=== PATIENT | female | born 1945 | race Caucasian/White ===

== ENCOUNTER 2018-05-05 10:03 | Outpatient (CLI) | payer OTHER, SELFPAY ==
[2018-05-05 10:23] LABS: Abs Immature Grans 0.03 k/cumm (0.0-0.09); Absolute Basophil Count 0.03 k/cumm (0.0-0.2); Absolute Eosinophil Count 0.32 k/cumm (0.0-0.7); Absolute Lymphocyte Count 0.69 k/cumm (1.2-3.4); Absolute Monocyte Count 0.88 k/cumm (0.11-0.7); Absolute Neutrophil Count 4.85 k/cumm (1.2-6.7); Basophils % 0.4; Eosinophils % 4.7; HCT 36.8 % (36.0-46.0); Immature Grans % 0.4; Lymphocytes % 10.1; Mean Corp. HGB Concentration 32.6 g/dL (32.0-36.0); Mean Corpuscular Hemoglobin 28.9 pg (27.0-33.0); Mean Corpuscular Volume 88.7 fL (80-95); Mean Platelet Volume 9.4 fL (8.0-11.0); Monocytes % 12.9; Neutrophils % 71.5; Platelet Count 175 x1000/uL (130-400); RBC 4.15 m/cumm (4.00-5.20); RBC Distribution Width 13.4 % (11.7-14.6)
[2018-05-05 10:43] LABS: ALT 16 U/L (12-78); AST 12 U/L (15-37); Albumin 3.1 g/dL (3.4-5.0); Alkaline Phosphatase 86 U/L (46-116); BUN 18 mg/dL (7-18); Bilirubin, Total 0.4 mg/dL (0.2-1.0); CREATININE 1.22 mg/dL (0.55-1.02); Chloride 104 mmol/L (98-107); Estimated GFR 43.08 (mL/min/1.73m2); Glucose 124 mg/dL (70-100); Potassium 3.6 mmol/L (3.5-5.1); Sodium 143 mmol/L (136-145); Total Protein 6.6 g/dL (6.4-8.2)
== END 2018-05-05 10:23 ==
PROVIDERS: PCP Student in an Organized Health Care Education/Training Program; Visit Provider Nurse Practitioner Family
DX: C91.10 Chronic lymphocytic leukemia of B-cell type not having achieved remission (principal)
CPT/HCPCS: 36415; 80053; 85025

== ENCOUNTER 2018-05-10 12:32 | Emergency (ER) | payer OTHER, SELFPAY ==
[2018-05-10 12:38] VITALS: BP 107/61; PULSE 74; RESP 16; TEMP 36.7; O2SAT 98
--- NOTE | 2018-05-10 12:58 | W.ED.GENAD ---
Discharge Plan Disposition Patient Disposition: HOME Condition: Good Discharge Details Chief Complaint: Orthopedic Clinical Impression: Foot pain, right Primary Care Provider: Dorothy Mosley ED Provider: Armando Chase Home Meds and New Rx's Prescriptions: Continue levothyroxine 137 MCG tablet 137 mcg PO DAILY RF: 0 calcitriol 0.25 MCG capsule 2 tab PO DAILY RF: 0 magnesium chloride [Mag 64] 64 MG tablet,delayed release (DR/EC) 64 mg PO DAILY RF: 0 venlafaxine 150 MG capsule,extended release 24hr 150 mg PO DAILY RF: 0 simvastatin 40 MG tablet 40 mg PO HS RF: 0 propranolol 60 mg Capsule,Extended Release 24 Hr 60 mg PO DAILY RF: 0 Discharge Instructions Additional Instructions: based on your exam you likely have gout, we have phoned a prescription to your pharmacy take ibuprofen and tylenol as needed for pain, follow dosing instructions on packaging if you have fevers, redness or severe worsening of pain return to the emergency department follow up as scheduled with your primary care provider Medical Decision Making 72 yo female with hx of cll, hld, htn, who comes in with cc of a week of right foot pain without trauma, fevers, leg swelling or calf pain. Has pain over metatarsals. States she gets this every once in a while and was told it may be gout. Has no redness or swelling, intact sensation and 2+ dp/pt pulses so unlikely arterial occlusion or dissection. No redness or wramth to suggest infection. full rom of the ankle so doubt septic joint. Will start her on steroids for possible gout and advised f/u with pcp and return precautions given. No leg swelling or calf pain so doubt dvt. No trauma or palpable deformities so doubt fx and don't feel xrays indicated Differential Diagnosis gout, sprain, strain, contusion HPI General Mode of arrival: ambulatory. Date/Time Provider Initiated Documentation: 05/10/18 12:45. Limitations to Documentation: no limitations. Information obtained by: patient. History of Present Illness 72 year old F presents to the emergency department with the chief complaint of right foot pain, described as moderate, with intensity rated at 6. Quality is described as aching, and is localized to the right and lower extremity. Patient reports no radiation. Patient started experiencing this week(s) (1) and it has been constant. Rest improves symptom(s), Patient notes no other symptoms.. Patient did receive the following treatments prior to arrival, NSAID Related Data Home Medications Medication Instructions Recorded Confirmed calcitriol 2 tab PO DAILY 04/20/13 05/10/18 levothyroxine 137 mcg PO DAILY 04/20/13 05/10/18 magnesium chloride [Mag 64] 64 mg PO DAILY 04/20/13 05/10/18 simvastatin 40 mg PO HS 04/20/13 05/10/18 venlafaxine 150 mg PO DAILY 04/20/13 05/10/18 propranolol 60 mg PO DAILY 05/10/18 05/10/18 Allergies Allergy/AdvReac Type Severity Reaction Status Date / Time lisinopril Allergy sob Unverified 05/10/18 12:41 ranitidine Allergy Wheezing Unverified 05/10/18 12:41 atorvastatin AdvReac Diarrhea Unverified 05/10/18 12:41 IVP dye Allergy Anaphylaxsi Uncoded 05/10/18 12:41 s General Stated Complaint: Orthopedic MEAGHAN: 3 Review of Systems Review of Systems All systems reviewed & are unremarkable except as noted in HPI and below Constitutional Denies chills, Denies fever(s) and Denies weakness Eyes Denies loss of vision ENT Denies change in voice Cardiovascular Denies chest pain and Denies dyspnea Respiratory Denies dyspnea Gastrointestinal Denies abdominal pain, Denies nausea and Denies vomiting Genitourinary Denies dysuria Musculoskeletal Denies joint swelling Integumentary/Breasts Denies rash Neurologic Denies loss of vision and Denies weakness Psychiatric Denies depression Endocrine Denies cold intolerance and Denies heat intolerance Allergic/Immunologic Denies urticaria PFSH Social History Smoking/Tobacco Use Status: Former Tobacco Use Exam Const General: no acute distress Orientation: alert [facility] Head: normal to inspection Ears: external ears normal General nose exam: external nose normal Mouth: moist mucous membranes Eyes General: appearance normal, both eyes and all related structures Neck Neck: normal visual inspection Resp Effort & Inspection: normal respiratory effort and able to speak in complete sentences Cardio Rate: regular rate Skin General skin exam: no rashes or lesions noted Neuro General: alert and oriented x3 Extrem General: normal to inspection, full ROM and normal capillary refill Psych Mental Status: mental status grossly normal Course Vital Signs Temperature 36.7 C 05/10/18 12:38 Pulse 74 05/10/18 12:38 Respiratory Rate 16 05/10/18 12:38 Blood Pressure 107/61 05/10/18 12:38 Pulse Oximetry 98 05/10/18 12:38 Temperature 36.7 C 05/10/18 12:38 Temperature Source Temporal Artery Scan 05/10/18 12:38 Pulse 74 05/10/18 12:38 Respiratory Rate 16 05/10/18 12:38 Blood Pressure 107/61 05/10/18 12:38 Blood Pressure Position Sitting 05/10/18 12:38 Pulse Oximetry 98 05/10/18 12:38 Oxygen Delivery Method Room Air 05/10/18 12:38 Oxygen Flow Rate 0 05/10/18 12:38 Pain Level 10 05/10/18 12:38
== END 2018-05-10 13:20 | disposition home or self-care (01) ==
PROVIDERS: Emergency Provider Emergency Medicine; PCP Student in an Organized Health Care Education/Training Program
DX: M79.671 Pain in right foot (principal); I10 Essential (primary) hypertension
CPT/HCPCS: 99283

== ENCOUNTER 2018-06-09 08:14 | Emergency (ER) | payer OTHER, SELFPAY ==
[2018-06-09 08:20] VITALS: BP 111/91; PULSE 84; RESP 16; TEMP 37; O2SAT 98
--- NOTE | 2018-06-09 08:21 | W.ED.GENAD ---
Discharge Plan Disposition Patient Disposition: HOME Condition: Fair Discharge Details Chief Complaint: Orthopedic Clinical Impression: Osteoarthritis of right knee Primary Care Provider: Dorothy Mosley ED Provider: Mitzy Soliz Home Meds and New Rx's Prescriptions: Continued levothyroxine 137 MCG tablet 137 mcg PO DAILY RF: 0 calcitriol 0.25 MCG capsule 2 tab PO DAILY RF: 0 magnesium chloride [Mag 64] 64 MG tablet,delayed release (DR/EC) 64 mg PO DAILY RF: 0 venlafaxine 150 MG capsule,extended release 24hr 150 mg PO DAILY RF: 0 simvastatin 40 MG tablet 40 mg PO HS RF: 0 propranolol 60 mg Capsule,Extended Release 24 Hr 60 mg PO DAILY RF: 0 Discharge Instructions Instructions: Arthritis (ED) Additional Instructions: Encourage rest, ice, elevation. Tylenol and/or antiinflammatory as needed for discomfort. LISBET wrap may help with swelling and stabilization. Please call orthopedics today to schedule follow up appointment and discuss further care. If you develop fevers/chills, redness/warmth or other new/worsening symptoms seek care urgently once again. Referrals: Dorothy Mosley [Primary Care Provider] - Ritchie Matamoros MD [ [facility] STAFF PHYSICIAN] - Discharge Data Discharge Date/Time-TO BE ENTERED AT DEPARTURE: 06/09/18 10:45 Medical Decision Making Patient is a 72 year old female presenting today with c/c of right knee pain. Patient has history of osteoarthritis, anxiety, gout, hypertension, high cholesterol, hypothyroidism, kidney stones, leukemia. Patient reports that 8 years ago she dislocated her right knee. Denies any ligamentous injury or surgical repair. Reports that at that time, she was treated with a brace for approximately 5 days which greatly helped with her discomfort. States she has had chronic discomfort in this knee. States is much worse with going up or down stairs typically she leads with the contralateral leg. Was recently in physical therapy, particularly pool therapy, at which time she reports she exacerbated her discomfort. She reports that 3 days ago she was on steps in the water when she tried to lead with her right knee. This exacerbated her discomfort. She reports that her pain is severe. Denies any recent illness. No fevers or chills. Denies any altered sensation in the extremity. Patient was able to dress herself and drive herself to the emergency department. Patient was able to walk into the department but then required a wheelchair for mobility. She does report that she uses walking sticks or walker at home to help with ambulation and has done so for the past few months. Exam is very limited. Patient prefers to hold the knee in a semi-flex position will not allow me to straighten it past 45 degrees. She is very tense and fighting on the exam. I do not appreciate any warmth or swelling. No deformity is palpable. Pain seems to be primarily along the medial aspect of the joint line. No pain over the patella or lateral joint line. Calf is soft and nontender. She is 2+ distal pulses. I did witness the patient get up, he herself undressed for the exam and transferred to the bed. At that time, the knee did appear in full extension. We will obtain radiographic images. Will give Tylenol and ibuprofen to help with discomfort. I placed an ice pack on the knee to also help with discomfort. Reviewed XR, significant for severe OA. Discussed findings with the patient. We discussed methods to help with her acute discomfort, she declines any prescription analgesics. ADvised f/u with orthopedics, she will call today for appointment. At this point, she was very upset about the arthritis diagnosis, states she has discussed this in the past and hates that word. Her main concern seems to be around possible need for surgical intervention after, I have been through so much. Would prefer the least invasive options such as an injection. Encouraged rest, ice, elevation. Tylenol and/or NSAID as needed for discomfort. Advised that she continue with her water exercises to keep up mobility. We discussed new/worsneing symptoms and when to seek care urgently once again. All of her questions and concerns were addressed, she is in agreement with this plan. HPI General Mode of arrival: wheelchair. Date/Time Provider Initiated Documentation: 06/09/18 08:20. Limitations to Documentation: no limitations. Information obtained by: patient. History of Present Illness 72 year old F presents to the emergency department with the chief complaint of right knee pain, described as severe, with intensity rated at 9. Quality is described as sharp, and is localized to the right and lower extremity. Patient reports no radiation. Patient started experiencing this year(s) and it has been intermittent. Immobilization improves symptom(s), Movement worsens symptoms . Patient notes denies chest pain, cough, fever/chills, nausea/vomiting, rash and weakness. Patient did receive the following treatments prior to arrival, other (tylenol) Related Data Home Medications Medication Instructions Recorded Confirmed calcitriol 2 tab PO DAILY 04/20/13 06/09/18 levothyroxine 137 mcg PO DAILY 04/20/13 06/09/18 magnesium chloride [Mag 64] 64 mg PO DAILY 04/20/13 06/09/18 simvastatin 40 mg PO HS 04/20/13 06/09/18 venlafaxine 150 mg PO DAILY 04/20/13 06/09/18 propranolol 60 mg PO DAILY 05/10/18 06/09/18 Allergies Allergy/AdvReac Type Severity Reaction Status Date / Time lisinopril Allergy sob Unverified 06/09/18 08:23 ranitidine Allergy Wheezing Unverified 06/09/18 08:23 atorvastatin AdvReac Diarrhea Unverified 06/09/18 08:23 IVP dye Allergy Anaphylaxsi Uncoded 06/09/18 08:23 s General MEAHGAN: 3 Review of Systems Constitutional Reports as per HPI, Denies chills, Denies fever(s), Denies headache(s) and Denies weakness ENT Denies headache(s) Cardiovascular Reports as per HPI Respiratory Reports as per HPI and Denies cough Musculoskeletal Reports as per HPI and Denies tingling Integumentary/Breasts Reports as per HPI, Denies rash and Denies wounds Neurologic Denies headache(s), Denies tingling and Denies weakness PFS Social History Smoking/Tobacco Use Status: Former Tobacco Use Exam Const General: cooperative, healthy appearing, comfortable, no acute distress, well developed and well groomed Nutritional Appearance: well nourished and overweight Orientation: alert and awake Resp Effort & Inspection: normal respiratory effort, able to speak in complete sentences and no respiratory distress Auscultation: clear to auscultation bilaterally, no rales, no rhonchi and no wheezes Cardio Rate: regular rate Rhythm: regular rhythm Heart Sounds: S1 normal and S2 normal Skin General skin exam: no rashes or lesions noted Lesions: no lesions Rashes: no rashes Trauma: no lacerations or abrasions Neuro General: alert and awake Cognition: normal cognition Speech: speech normal Gait: normal gait Motor: muscle tone normal throughout Sensory Exam: no sensory deficits noted Extrem General: normal capillary refill, no joint enlargement, no clubbing, cyanosis or edema, no pedal edema, no calf tenderness and normal gait Left lower extremity: normal capillary refill (2+ distal pulses), no joint enlargement and knee Details: tenderness Location: of the medial joint line and knee ligament exam normal (unable to preform exam); no swelling, ROM abnormal, no abrasions, no lacerations, no ecchymosis, no crepitus, no deformity and no unusual warmth; abnormal to inspection (unable to examine right knee well), abnormal ROM (full flexion, will not straighten unless standing on the extremity) and no edema Psych Appearance: grossly normal and well kempt Mental Status: mental status grossly normal Speech and Movement: speech and movement normal
--- NOTE | 2018-06-09 08:46 | DI.RAD_ITS ---
SYMPTOM/DIAGNOSIS: RT KNEE PAIN RIGHT KNEE: Severe degenerative changes are demonstrated with essentially obliteration of the lateral tibiofemoral joint compartment and severe narrowing of the medial tibiofemoral joint compartment. There is articular sclerosis and prominent hypertrophic spurring and medial subluxation of the femur on the tibial plateau. In addition, severe degenerative changes involving the patellofemoral joint are identified. SUMMARY: End stage DJD right knee.
[2018-06-09] MEDS: Ibuprofen 600 MG TAB PO (08:54)
[2018-06-09] MEDS: Acetaminophen 500 MG TAB PO (08:55)
--- NOTE | 2018-06-09 08:55 | NUR.NOTE ---
patient medicated per MD order Nursing Note:
--- NOTE | 2018-06-09 08:56 | ED.GENADUL_ITS ---
Discharge Plan Disposition Patient Disposition: HOME Condition: Fair Discharge Details Chief Complaint: Orthopedic Clinical Impression: Osteoarthritis of right knee Primary Care Provider: Dorothy Mosley ED Provider: Mitzy Soliz Home Meds and New Rx's Prescriptions: Continued levothyroxine 137 MCG tablet 137 mcg PO DAILY RF: 0 calcitriol 0.25 MCG capsule 2 tab PO DAILY RF: 0 magnesium chloride [Mag 64] 64 MG tablet,delayed release (DR/EC) 64 mg PO DAILY RF: 0 venlafaxine 150 MG capsule,extended release 24hr 150 mg PO DAILY RF: 0 simvastatin 40 MG tablet 40 mg PO HS RF: 0 propranolol 60 mg Capsule,Extended Release 24 Hr 60 mg PO DAILY RF: 0 Discharge Instructions Instructions: Arthritis (ED) Additional Instructions: Encourage rest, ice, elevation. Tylenol and/or antiinflammatory as needed for discomfort. LISBET wrap may help with swelling and stabilization. Please call orthopedics today to schedule follow up appointment and discuss further care. If you develop fevers/chills, redness/warmth or other new/worsening symptoms seek care urgently once again. Referrals: Dorothy Mosley [Primary Care Provider] - Ritchie Matamoros MD [ [facility] STAFF PHYSICIAN] - Discharge Data Discharge Date/Time-TO BE ENTERED AT DEPARTURE: 06/09/18 10:45 Medical Decision Making Patient is a 72 year old female presenting today with c/c of right knee pain. Patient has history of osteoarthritis, anxiety, gout, hypertension, high cholesterol, hypothyroidism, kidney stones, leukemia. Patient reports that 8 years ago she dislocated her right knee. Denies any ligamentous injury or surgical repair. Reports that at that time, she was treated with a brace for approximately 5 days which greatly helped with her discomfort. States she has had chronic discomfort in this knee. States is much worse with going up or down stairs typically she leads with the contralateral leg. Was recently in physical therapy, particularly pool therapy, at which time she reports she exacerbated her discomfort. She reports that 3 days ago she was on steps in the water when she tried to lead with her right knee. This exacerbated her discomfort. She reports that her pain is severe. Denies any recent illness. No fevers or chills. Denies any altered sensation in the extremity. Patient was able to dress herself and drive herself to the emergency department. Patient was able to walk into the department but then required a wheelchair for mobility. She does report that she uses walking sticks or walker at home to help with ambulation and has done so for the past few months. Exam is very limited. Patient prefers to hold the knee in a semi-flex position will not allow me to straighten it past 45 degrees. She is very tense and fighting on the exam. I do not appreciate any warmth or swelling. No deformity is palpable. Pain seems to be primarily along the medial aspect of the joint l ine. No pain over the patella or lateral joint line. Calf is soft and nontender. She is 2+ distal pulses. I did witness the patient get up, he herself undressed for the exam and transferred to the bed. At that time, the knee did appear in full extension. We will obtain radiographic images. Will give Tylenol and ibuprofen to help with discomfort. I placed an ice pack on the knee to also help with discomfort. Reviewed XR, significant for severe OA. Discussed findings with the patient. We discussed methods to help with her acute discomfort, she declines any prescription analgesics. ADvised f/u with orthopedics, she will call today for appointment. At this point, she was very upset about the arthritis diagnosis, states she has discussed this in the past and hates that word. Her main concern seems to be around possible need for surgical intervention after, I have been through so much. Would prefer the least invasive options such as an injection. Encouraged rest, ice, elevation. Tylenol and/or NSAID as needed for discomfort. Advised that she continue with her water exercises to keep up mobility. We discussed new/worsneing symptoms and when to seek care urgently once again. All of her questions and concerns were addressed, she is in agreement with this plan. HPI General Mode of arrival: wheelchair . Date/Time Provider Initiated Documentation: 06/09/18 08:20 . Limitations to Documentation: no limitations . Information obtained by: patient . History of Present Illness 72 year old F presents to the emergency department with the chief complaint of right knee pain, described as severe, with intensity rated at 9. Quality is described as sharp, and is localized to the right and lower extremity. Patient reports no radiation. Patient started experiencing this year(s) and it has been intermittent. Immobilization improves symptom(s), Movement worsens symptoms . Patient notes denies chest pain, cough, fever/chills, nausea/vomiting, rash and weakness. Patient did receive the following treatments prior to arrival, other (tylenol) Related Data Home Medications Medication Instructions Recorded Confirmed calcitriol 2 tab PO DAILY 04/20/13 06/09/18 levothyroxine 137 mcg PO DAILY 04/20/13 06/09/18 magnesium chloride [Mag 64] 64 mg PO DAILY 04/20/13 06/09/18 simvastatin 40 mg PO HS 04/20/13 06/09/18 venlafaxine 150 mg PO DAILY 04/20/13 06/09/18 propranolol 60 mg PO DAILY 05/10/18 06/09/18 Allergies Allergy/AdvReac Type Severity Reaction Status Date / Time lisinopril Allergy sob Unverified 06/09/18 08:23 ranitidine Allergy Wheezing Unverified 06/09/18 08:23 atorvastatin AdvReac Diarrhea Unverified 06/09/18 08:23 IVP dye Allergy Anaphylaxsi Uncoded 06/09/18 08:23 s General MEAGHAN: 3 Review of Systems Constitutional Reports as per HPI, Denies chills, Denies fever(s), Denies headache(s) and Denies weakness ENT Denies headache(s) Cardiovascular Reports as per HPI Respiratory Reports as per HPI and Denies cough Musculoskeletal Reports as per HPI and Denies tingling Integumentary/Breasts Reports as per HPI, Denies rash and Denies wounds Neurologic Denies headache(s), Denies tingling and Denies weakness PFS Social History Smoking/Tobacco Use Status: Former Tobacco Use Exam Const General: cooperative, healthy appearing, comfortable, no acute distress, well developed and well groomed Nutritional Appearance: well nourished and overweight Orientation: alert and awake Resp Effort & Inspection: normal respiratory effort, able to speak in complete sentences and no respiratory distress Auscultation: clear to auscultation bilaterally, no rales, no rhonchi and no wheezes Cardio Rate: regular rate Rhythm: regular rhythm Heart Sounds: S1 normal and S2 normal Skin General skin exam: no rashes or lesions noted Lesions: no lesions Rashes: no rashes Trauma: no lacerations or abrasions Neuro General: alert and awake Cognition: normal cognition Speech: speech normal Gait: normal gait Motor: muscle tone normal throughout Sensory Exam: no sensory deficits noted Extrem General: normal capillary refill, no joint enlargement, no clubbing, cyanosis or edema, no pedal edema, no calf tenderness and normal gait Left lower extremity: normal capillary refill (2+ distal pulses), no joint enlargement and knee Details: tenderness Location: of the medial joint line and knee ligament exam normal (unable to preform exam); no swelling, ROM abnormal, no abrasions, no lacerations, no ecchymosis, no crepitus, no deformity and no unusual warmth; abnormal to inspection (unable to examine right knee well), abnormal ROM (full flexion, will not straighten unless standing on the extremity) and no edema Psych Appearance: grossly normal and well kempt Mental Status: mental status grossly normal Speech and Movement: speech and movement normal
--- NOTE | 2018-06-09 08:56 | NUR.NOTE ---
patient medicated per MD order Nursing Note:
--- NOTE | 2018-06-09 10:21 | NUR.NOTE ---
patient received ed wrap and medication instruction. patient home with self Nursing Note:
--- NOTE | 2018-06-09 10:23 | NUR.NOTE ---
pain improved /10 Nursing Note:
--- NOTE | 2018-06-09 10:33 | NUR.NOTE ---
patient received ed wrap and medication teaching per PA order Nursing Note:
== END 2018-06-09 10:46 | disposition home or self-care (01) ==
PROVIDERS: Emergency Provider Physician Assistant; PCP Student in an Organized Health Care Education/Training Program
DX: M17.11 Unilateral primary osteoarthritis, right knee (principal); I10 Essential (primary) hypertension
CPT/HCPCS: 99282; 73564

== ENCOUNTER 2018-09-20 14:44 | Outpatient (REF) | payer OTHER, SELFPAY ==
[2018-09-20 14:41] LABS: Abs Immature Grans 0.09 k/cumm (0.0-0.09); Absolute Basophil Count 0.03 k/cumm (0.0-0.2); Absolute Eosinophil Count 0.21 k/cumm (0.0-0.7); Absolute Lymphocyte Count 0.79 k/cumm (1.2-3.4); Basophils % 0.2; Eosinophils % 1.7; HCT 32.4 % (36.0-46.0); HGB 10.4 g/dL (12.0-15.5); Immature Grans % 0.7; Lymphocytes % 6.3; Mean Corp. HGB Concentration 32.1 g/dL (32.0-36.0); Mean Corpuscular Hemoglobin 28.9 pg (27.0-33.0); Mean Platelet Volume 9.7 fL (8.0-11.0); Monocytes % 7.2; Neutrophils % 83.9; Platelet Count 253 x1000/uL (130-400); RBC Distribution Width 13.5 % (11.7-14.6); White Blood Cell Count 12.52 k/cumm (4.4-10.8)
[2018-09-20 16:06] LABS: Anion Gap 12.4 mmol/L (3-11); BUN 16 mg/dL (7-18); CO2 25.6 mmol/L (21.0-32.0); Chloride 103 mmol/L (98-107); Glucose 146 mg/dL (70-100); Potassium 4.1 mmol/L (3.5-5.1); Sodium 141 mmol/L (136-145); TSH 1.52 uIU/mL (0.358-3.74)
== END 2018-09-20 15:04 ==
LOC: LBN 14:44
PROVIDERS: PCP Student in an Organized Health Care Education/Training Program; Visit Provider Family Medicine
DX: E86.0 Dehydration (principal); C91.11 Chronic lymphocytic leukemia of B-cell type in remission; N18.9 Chronic kidney disease, unspecified; I10 Essential (primary) hypertension; E03.9 Hypothyroidism, unspecified; E78.5 Hyperlipidemia, unspecified
CPT/HCPCS: 80048; 84443; 85025

== ENCOUNTER 2018-09-21 20:31 | Outpatient (REF) | payer OTHER, SELFPAY ==
[2018-09-21 20:31] LABS: Bilirubin Negative (Negative); Blood Trace-intact (Negative); Clarity Sl Cloudy; Glucose Negative (Negative); Ketones Negative (Negative); Leukocyte Esterase Small (Negative); Nitrite Negative (Negative); Specific Gravity 1.015 (1.005-1.025); Urobilinogen 0.2 EU/dL (Up TO 0.2)
[2018-09-21 21:04] LABS: Bacteria Moderate HPF (Negative); C & S Indicated? Yes; Casts Negative LPF (Negative); Crystals Negative HPF (Negative); Epithelial Cells Few HPF (Negative); Mucus Negative (Negative); Other Cells Negative (Negative)
== END 2018-09-21 20:51 ==
LOC: LBN 20:31
PROVIDERS: PCP Student in an Organized Health Care Education/Training Program; Visit Provider Family Medicine
DX: D72.829 Elevated white blood cell count, unspecified (principal)
CPT/HCPCS: 81003; 81015; 87086

== ENCOUNTER 2018-09-25 12:28 | Outpatient (REF) | payer OTHER, SELFPAY ==
[2018-09-25 13:51] LABS: Abs Immature Grans 0.15 k/cumm (0.0-0.09); Absolute Basophil Count 0.05 k/cumm (0.0-0.2); Absolute Eosinophil Count 0.34 k/cumm (0.0-0.7); Absolute Monocyte Count 1.26 k/cumm (0.11-0.7); Absolute Neutrophil Count 12.09 k/cumm (1.2-6.7); Basophils % 0.3; Eosinophils % 2.2; HCT 32.2 % (36.0-46.0); HGB 10.5 g/dL (12.0-15.5); Lymphocytes % 9.5; Mean Corp. HGB Concentration 32.6 g/dL (32.0-36.0); Mean Corpuscular Hemoglobin 29.3 pg (27.0-33.0); Mean Corpuscular Volume 89.9 fL (80-95); Mean Platelet Volume 9.1 fL (8.0-11.0); Monocytes % 8.2; Neutrophils % 78.8; Platelet Count 300 x1000/uL (130-400); RBC 3.58 m/cumm (4.00-5.20); RBC Distribution Width 13.4 % (11.7-14.6); White Blood Cell Count 15.34 k/cumm (4.4-10.8)
[2018-09-25 13:54] LABS: Absolute Lymphocyte Count 1.46 k/cumm (1.2-3.4)
== END 2018-09-25 12:48 ==
LOC: LBN 12:28
PROVIDERS: PCP Student in an Organized Health Care Education/Training Program; Visit Provider Family Medicine
DX: D72.829 Elevated white blood cell count, unspecified (principal)
CPT/HCPCS: 85025

== ENCOUNTER 2018-09-27 15:00 | Outpatient (REF) | payer OTHER, SELFPAY ==
[2018-09-27 18:40] LABS: Bilirubin Negative (Negative); Blood Negative (Negative); Clarity Clear; Glucose Negative (Negative); Ketones Negative (Negative); Leukocyte Esterase Small (Negative); Nitrite Negative (Negative); Urobilinogen 0.2 EU/dL (Up TO 0.2); pH 6.5 (5-8)
[2018-09-27 19:15] LABS: Bacteria Rare HPF (Negative); C & S Indicated? No; Casts Negative LPF (Negative); Crystals Negative HPF (Negative); Epithelial Cells Rare HPF (Negative); Mucus Negative (Negative); Other Cells Negative (Negative); RBC Negative (0-2); WBC 0-2 HPF (0-5)
== END 2018-09-27 15:20 ==
LOC: LBN 15:00
PROVIDERS: PCP Student in an Organized Health Care Education/Training Program; Visit Provider Family Medicine
DX: D72.829 Elevated white blood cell count, unspecified (principal)
CPT/HCPCS: 81003; 81015

== ENCOUNTER 2018-09-28 12:26 | Outpatient (REF) | payer OTHER, SELFPAY ==
[2018-09-28 12:46] LABS: Abs Immature Grans 0.12 k/cumm (0.0-0.09); Absolute Basophil Count 0.05 k/cumm (0.0-0.2); Absolute Lymphocyte Count 1.43 k/cumm (1.2-3.4); Absolute Monocyte Count 1.25 k/cumm (0.11-0.7); Basophils % 0.4; Eosinophils % 4.8; HCT 35.2 % (36.0-46.0); HGB 11.1 g/dL (12.0-15.5); Immature Grans % 0.9; Lymphocytes % 10.5; Mean Corp. HGB Concentration 31.5 g/dL (32.0-36.0); Mean Corpuscular Hemoglobin 28.5 pg (27.0-33.0); Mean Corpuscular Volume 90.3 fL (80-95); Mean Platelet Volume 9.9 fL (8.0-11.0); Monocytes % 9.2; Neutrophils % 74.2; Platelet Count 316 x1000/uL (130-400); RBC Distribution Width 13.5 % (11.7-14.6); White Blood Cell Count 13.63 k/cumm (4.4-10.8)
[2018-09-28 12:47] LABS: Absolute Eosinophil Count 0.65 k/cumm (0.0-0.7); Absolute Neutrophil Count 10.11 k/cumm (1.2-6.7)
== END 2018-09-28 12:46 ==
LOC: LBN 12:26
PROVIDERS: PCP Student in an Organized Health Care Education/Training Program; Visit Provider Family Medicine
DX: E86.0 Dehydration (principal)
CPT/HCPCS: 85025

== ENCOUNTER 2018-09-29 00:31 | Outpatient (CLI) | payer OTHER, SELFPAY ==
--- NOTE | 2018-09-29 10:39 | DI.US_ITS ---
SYMPTOMS/DIAGNOSIS: RLE REDNESS, WARMTH, ? DVT DUPLEX VENOUS RIGHT LOWER EXTREMITY: Duplex evaluation of the deep venous system was performed according to the usual protocol. The deep veins are freely compressible throughout to the level of the popliteal veins. There is normal doppler flow visible throughout and there is excellent flow augmentation with manual calf compression. CONCLUSION: No evidence of deep venous thrombosis.
--- NOTE | 2018-09-29 10:40 | DI.RAD_ITS ---
SYMPTOMS/DIAGNOSIS: COUGH, INCREASED WBC PA AND LATERAL CHEST: The heart is not enlarged. The lungs appear generally clear. There is a question of minimal pleural blunting laterally on the PA view but this finding appears to have been present on multiple previous chest films. No fluid seen in the posterior sulcus on the lateral film. CONCLUSION: Negative examination of the chest.
== END 2018-09-29 00:51 ==
PROVIDERS: PCP Student in an Organized Health Care Education/Training Program; Visit Provider Family Medicine
DX: R05 Cough (principal); D72.829 Elevated white blood cell count, unspecified; L53.9 Erythematous condition, unspecified
CPT/HCPCS: 71046; 93971

== ENCOUNTER 2018-11-24 10:24 | Outpatient (CLI) | payer OTHER, SELFPAY ==
[2018-11-24 10:52] LABS: Abs Immature Grans 0.02 k/cumm (0.0-0.09); Absolute Basophil Count 0.03 k/cumm (0.0-0.2); Absolute Eosinophil Count 0.21 k/cumm (0.0-0.7); Absolute Monocyte Count 0.79 k/cumm (0.11-0.7); Absolute Neutrophil Count 6.62 k/cumm (1.2-6.7); Basophils % 0.3; Eosinophils % 2.3; HCT 38.8 % (36.0-46.0); HGB 12.3 g/dL (12.0-15.5); Immature Grans % 0.2; Lymphocytes % 15.4; Mean Corp. HGB Concentration 31.7 g/dL (32.0-36.0); Mean Corpuscular Hemoglobin 27.9 pg (27.0-33.0); Mean Platelet Volume 9.7 fL (8.0-11.0); Monocytes % 8.7; Neutrophils % 73.1; Platelet Count 202 x1000/uL (130-400); RBC 4.41 m/cumm (4.00-5.20); RBC Distribution Width 13.7 % (11.7-14.6); White Blood Cell Count 9.07 k/cumm (4.4-10.8)
[2018-11-24 11:00] LABS: ALT 18 U/L (12-78); AST 14 U/L (15-37); Albumin 3.2 g/dL (3.4-5.0); Alkaline Phosphatase 92 U/L (46-116); Anion Gap 9.6 mmol/L (3-11); BUN 33 mg/dL (7-18); Bilirubin, Total 0.4 mg/dL (0.2-1.0); CO2 26.4 mmol/L (21.0-32.0); CREATININE 1.51 mg/dL (0.55-1.02); Calcium 9.1 mg/dL (8.5-10.1); Chloride 103 mmol/L (98-107); Estimated GFR 33.59 (mL/min/1.73m2); Glucose 154 mg/dL (70-100); Potassium 3.9 mmol/L (3.5-5.1); Sodium 139 mmol/L (136-145)
== END 2018-11-24 10:44 ==
PROVIDERS: Nurse Practitioner Family; PCP Student in an Organized Health Care Education/Training Program; Visit Provider Internal Medicine Hematology & Oncology
DX: C91.10 Chronic lymphocytic leukemia of B-cell type not having achieved remission (principal)
CPT/HCPCS: 36415; 80053; 85025

== ENCOUNTER 2018-12-09 09:36 | Emergency (ER) | payer OTHER, SELFPAY ==
[2018-12-09 09:36] VITALS: BP 112/70; PULSE 78; RESP 18; TEMP 36.6; O2SAT 98
--- NOTE | 2018-12-09 09:40 | W.ED.GENAD ---
Discharge Plan Disposition Patient Disposition: HOME Condition: Stable Discharge Details Chief Complaint: GenMedical Clinical Impression: Anxiety, Chronic hypotension Primary Care Provider: Dorothy Mosley ED Provider: Mitzy Soliz Home Meds and New Rx's Prescriptions: Continued levothyroxine 137 MCG tablet 112 mcg PO DAILY RF: 0 calcitriol 0.25 MCG capsule 2 tab PO DAILY RF: 0 magnesium chloride [Mag 64] 64 MG tablet,delayed release (DR/EC) 64 mg PO DAILY RF: 0 venlafaxine 150 MG capsule,extended release 24hr 150 mg PO DAILY RF: 0 simvastatin 40 MG tablet 40 mg PO HS RF: 0 propranolol 60 mg Capsule,Extended Release 24 Hr 20 mg PO DAILY RF: 0 Discharge Instructions Instructions: Hypotension (ED), Anxiety (ED) Additional Instructions: Encourage hydration. Please continue medications as prescribed. Please keep upcoming appointment with your primary care to discuss these issues once again. If you develop chest pain, shortness of breatH, weakness, dizziness or other new/worsening symptoms please seek care urgently once again. Please begin checking your blood pressure daily and discussed these results with your primary care. Referrals: Dorothy Mosley [Primary Care Provider] - Medical Decision Making Roma presents after having episode of hypotension at PT office. States she was nauseated associated with anxiety. Had episode of hypotension, BP taken one time with automatic cuff, systolic noted to be in the 70s which prompted call to EMS for transport here. EMS reports BP normal for them. Patient is typically in the 110s systolic on chart review and patietn history. Patient is currently asymptomatic. Patient is on propranolol which was lowered a few months ago. Offered to discuss lowering this further with PCP which she declines. Reports she has done this in the past with poor outcome. She is being follow closely by PCP for anemia in the postoperative period. I did preform chart review on [facility] records, H&H last assessed in September, at that time hemoglobin >11. Patient and I discussed, at length, the episode today at PT. She feels that htis is typical anxiety reaction for her. Declines further workup at this time and is requesting discharge. I discussed the concern for possible serious diagnoses, including ACS, and she feels well enough to be discharged, declines further evaluation at this time. All of her questions and concerns were addressed, she is in agreement with this plan. HPI General Mode of arrival: EMS. Date/Time Provider Initiated Documentation: 12/09/18 09:39. Limitations to Documentation: no limitations. Information obtained by: patient, EMS and RN notes reviewed. HPI Narrative: Patient is a 73-year-old female presenting today with chief complaint of hypertension. She reports that she is had difficulties with this for the past year. However, reports that over the past 2 monts it has been better and she has not noted low readings at home. She reports that today she was working with PT when she became very anxious and upset regarding the therapy being preformed at that moment. Was nonexertional. States she was seated and working through sca on rightr tissue with hand manibupation for right TKA. States this caused her to be nauseated. Reprots that she has been very stressed/anxious recently regarding upcoming move. States that whenever she feels anxious she becomes nauseated. REprots that she is very active. Has not experienced SOB, CP, nausea with exertion. States this is purely anxiety driven. No recent illness. No recent travel. Related Data Home Medications Medication Instructions Recorded Confirmed calcitriol 2 tab PO DAILY 04/20/13 12/09/18 levothyroxine 112 mcg PO DAILY 04/20/13 12/09/18 magnesium chloride [Mag 64] 64 mg PO DAILY 04/20/13 12/09/18 simvastatin 40 mg PO HS 04/20/13 12/09/18 venlafaxine 150 mg PO DAILY 04/20/13 12/09/18 propranolol 20 mg PO DAILY 05/10/18 12/09/18 Allergies Allergy/AdvReac Type Severity Reaction Status Date / Time lisinopril Allergy sob Unverified 12/09/18 09:41 ranitidine Allergy Wheezing Unverified 12/09/18 09:41 atorvastatin AdvReac Diarrhea Unverified 12/09/18 09:41 IVP dye Allergy Anaphylaxsi Uncoded 12/09/18 09:41 s General MEAGHAN: 3 Review of Systems Constitutional Reports as per HPI, Denies chills, Denies fever(s), Denies headache(s), Denies lethargy and Denies poor appetite Eyes Denies change in vision ENT Denies dizziness and Denies headache(s) Cardiovascular Reports as per HPI, Denies chest pain, Denies chest pain at rest, Denies chest pain with activity, Denies radiating jaw, neck or arm pain, Denies palpitations, Denies dyspnea and Denies dyspnea on exertion Respiratory Reports as per HPI, Denies chest congestion, Denies cough, Denies pain on inspiration, Denies pain with cough, Denies dyspnea, Denies dyspnea on exertion and Denies wheezing Gastrointestinal Reports as per HPI, Denies abdominal pain, Denies diarrhea, Reports nausea and Denies vomiting Musculoskeletal Reports as per HPI and Denies back pain Integumentary/Breasts Reports as per HPI and Denies rash Neurologic Reports as per HPI, Denies dizziness and Denies headache(s) Psychiatric Reports anxiety, Reports depression and Denies suicidal ideation Endocrine Denies palpitations Allergic/Immunologic Denies wheezing [facility] Social History Smoking/Tobacco Use Status: Former Tobacco Use Drug use: Never Do you feel safe at home: Yes Do you feel safe in your relationship?: Yes Exam Const General: cooperative, healthy appearing, comfortable, no acute distress and well developed Nutritional Appearance: well nourished and overweight Orientation: alert, awake and oriented x3 HENMT Head: normal to inspection Ears: hearing grossly normal bilaterally Mouth: moist mucous membranes Chest Chest: normal inspection of the chest, normal palpation of entire chest wall and no crepitus Resp Effort & Inspection: normal respiratory effort, able to speak in complete sentences and no respiratory distress Auscultation: clear to auscultation bilaterally, no rales, no rhonchi and no wheezes Cardio Rate: regular rate Rhythm: regular rhythm Heart Sounds: S1 normal and S2 normal GI Inspection: normal to inspection, no edema and non-distended Palpation: soft, no hepatosplenomegaly, not firm, no guarding, not rigid and nontender Auscultation: normal bowel sounds Skin General skin exam: no rashes or lesions noted (incision on right knee appears to be healing well) Trauma: no lacerations or abrasions Neuro General: alert, awake and oriented x3 Cognition: normal cognition Speech: speech normal Gait: normal gait Extrem General: normal to inspection, normal capillary refill, no pedal edema, no calf tenderness and normal gait Psych Appearance: grossly normal and well kempt Mental Status: mental status grossly normal Speech and Movement: speech and movement normal
[2018-12-09 09:42] VITALS: RESP 18
[2018-12-09 09:53] VITALS: BP 103/76
--- NOTE | 2018-12-09 09:56 | ED.GENADUL_ITS ---
Discharge Plan Disposition Patient Disposition: HOME Condition: Stable Discharge Details Chief Complaint: GenMedical Clinical Impression: Anxiety, Chronic hypotension Primary Care Provider: Dorothy Mosley ED Provider: Mitzy Soliz Home Meds and New Rx's Prescriptions: Continued levothyroxine 137 MCG tablet 112 mcg PO DAILY RF: 0 calcitriol 0.25 MCG capsule 2 tab PO DAILY RF: 0 magnesium chloride [Mag 64] 64 MG tablet,delayed release (DR/EC) 64 mg PO DAILY RF: 0 venlafaxine 150 MG capsule,extended release 24hr 150 mg PO DAILY RF: 0 simvastatin 40 MG tablet 40 mg PO HS RF: 0 propranolol 60 mg Capsule,Extended Release 24 Hr 20 mg PO DAILY RF: 0 Discharge Instructions Instructions: Hypotension (ED), Anxiety (ED) Additional Instructions: Encourage hydration. Please continue medications as prescribed. Please keep upcoming appointment with your primary care to discuss these issues once again. If you develop chest pain, shortness of breatH, weakness, dizziness or other new/worsening symptoms please seek care urgently once again. Please begin checking your blood pressure daily and discussed these results with your primary care. Referrals: Dorothy Mosley [Primary Care Provider] - Medical Decision Making Roma presents after having episode of hypotension at PT office. States she was nauseated associated with anxiety. Had episode of hypotension, BP taken one time with automatic cuff, systolic noted to be in the 70s which prompted call to EMS for transport here. EMS reports BP normal for them. Patient is typically in the 110s systolic on chart review and patietn history. Patient is currently asymptomatic. Patient is on propranolol which was lowered a few months ago. Offered to discuss lowering this further with PCP which she declines. Reports she has done this in the past with poor outcome. She is being follow closely by PCP for anemia in the postoperative period. I did preform chart review on [facility] records, H&H last assessed in September, at that time hemoglobin >11. Patient and I discussed, at length, the episode today at PT. She feels that htis is typical anxiety reaction for her. Declines further workup at this time and is requesting discharge. I discussed the concern for possible serious diagnoses, including ACS, and she feels well enough to be discharged, declines further evaluation at this time. All of her questions and concerns were addressed, she is in agreement with this plan. HPI General Mode of arrival: EMS . Date/Time Provider Initiated Documentation: 12/09/18 09:39 . Limitations to Documentation: no limitations . Information obtained by: patient, EMS and RN notes reviewed . HPI Narrative: Patient is a 73-year-old female presenting today with chief complaint of hypertension. She reports that she is had difficulties with this for the past year. However, reports that over the past 2 monts it has been better and she has not noted low readings at home. She reports that today she was working with PT when she became very anxious and upset regarding the therapy being preformed at that moment. Was nonexertional. States she was seated and working through sca on rightr tissue with hand manibupation for right TKA. States this caused her to be nauseated. Reprots that she has been very stressed/anxious recently regarding upcoming move. States that whenever she feels anxious she becomes nauseated. REprots that she is very active. Has not experienced SOB, CP, nausea with exertion. States this is purely anxiety driven. No recent illness. No recent travel. Related Data Home Medications Medication Instructions Recorded Confirmed calcitriol 2 tab PO DAILY 04/20/13 12/09/18 levothyroxine 112 mcg PO DAILY 04/20/13 12/09/18 magnesium chloride [Mag 64] 64 mg PO DAILY 04/20/13 12/09/18 simvastatin 40 mg PO HS 04/20/13 12/09/18 venlafaxine 150 mg PO DAILY 04/20/13 12/09/18 propranolol 20 mg PO DAILY 05/10/18 12/09/18 Allergies Allergy/AdvReac Type Severity Reaction Status Date / Time lisinopril Allergy sob Unverified 12/09/18 09:41 ranitidine Allergy Wheezing Unverified 12/09/18 09:41 atorvastatin AdvReac Diarrhea Unverified 12/09/18 09:41 IVP dye Allergy Anaphylaxsi Uncoded 12/09/18 09:41 s General MEAGHAN: 3 Review of Systems Constitutional Reports as per HPI, Denies chills, Denies fever(s), Denies headache(s), Denies lethargy and Denies poor appetite Eyes Denies change in vision ENT Denies dizziness and Denies headache(s) Cardiovascular Reports as per HPI, Denies chest pain, Denies chest pain at rest, Denies chest pain with activity, Denies radiating jaw, neck or arm pain, Denies palpitations, Denies dyspnea and Denies dyspnea on exertion Respiratory Reports as per HPI, Denies chest congestion, Denies cough, Denies pain on inspiration, Denies pain with cough, Denies dyspnea, Denies dyspnea on exertion and Denies wheezing Gastrointestinal Reports as per HPI, Denies abdominal pain, Denies diarrhea, Reports nausea and Denies vomiting Musculoskeletal Reports as per HPI and Denies back pain Integumentary/Breasts Reports as per HPI and Denies rash Neurologic Reports as per HPI, Denies dizziness and Denies headache(s) Psychiatric Reports anxiety, Reports depression and Denies suicidal ideation Endocrine Denies palpitations Allergic/Immunologic Denies wheezing [facility] Social History Smoking/Tobacco Use Status: Former Tobacco Use Drug use: Never Do you feel safe at home: Yes Do you feel safe in your relationship?: Yes Exam Const General: cooperative, healthy appearing, comfortable, no acute distress and well developed Nutritional Appearance: well nourished and overweight Orientation: alert, awake and oriented x3 HENMT Head: normal to inspection Ears: hearing grossly normal bilaterally Mouth: moist mucous membranes Chest Chest: normal inspection of the chest, normal palpation of entire chest wall and no crepitus Resp Effort & Inspection: normal respiratory effort, able to speak in complete sentences and no respiratory distress Auscultation: clear to auscultation bilaterally, no rales, no rhonchi and no wheezes Cardio Rate: regular rate Rhythm: regular rhythm Heart Sounds: S1 normal and S2 normal GI Inspection: normal to inspection, no edema and non-distended Palpation: soft, no hepatosplenomegaly, not firm, no guarding, not rigid and nontender Auscultation: normal bowel sounds Skin General skin exam: no rashes or lesions noted (incision on right knee appears to be healing well) Trauma: no lacerations or abrasions Neuro General: alert, awake and oriented x3 Cognition: normal cognition Speech: speech normal Gait: normal gait Extrem General: normal to inspection, normal capillary refill, no pedal edema, no calf tenderness and normal gait Psych Appearance: grossly normal and well kempt Mental Status: mental status grossly normal Speech and Movement: speech and movement normal
[2018-12-09 10:13] VITALS: BP 113/77
[2018-12-09 10:19] VITALS: BP 121/62; PULSE 63; RESP 16; TEMP 36.7; O2SAT 99
== END 2018-12-09 10:34 | disposition home or self-care (01) ==
LOC: ER 10:33
PROVIDERS: Emergency Provider Physician Assistant; PCP Student in an Organized Health Care Education/Training Program
DX: F41.9 Anxiety disorder, unspecified (principal); I95.9 Hypotension, unspecified; R11.0 Nausea
CPT/HCPCS: 99283